=== PATIENT | female | born 1985 | race Hispanic/Latino ===

== ENCOUNTER 2022-02-18 22:31 | Inpatient (IN) | payer SELFPAY ==
[2022-02-18 22:44] LABS: #Lymphocytes 0.7 thou/uL (1.20-3.40); #Monocytes 0.7 thou/uL (0.11-0.59); #Neutrophils 13.3 thou/uL (1.40-6.50); %Basophils 0.3 % (0.0-1.0); %Lymphocytes 4.8 % (21.0-51.0); %Neutrophils 89.9 % (42.0-75.0); Hemoglobin 14.8 g/dL (12.0-16.0); Mean Corpuscular HGB CONC 32.6 g/dL (32.0-36.0); Mean Corpuscular Hemoglobin 27.8 pg (27.0-31.0); Mean Corpuscular Volume 85.2 fL (78.0-98.0); Mean Platelet Volume 10.9 fL (7.4-10.4); Platelet Count 123 thou/uL (130-400); RBC Distribution Width 19.3 % (11.5-14.5); Red Blood Cell (RBC) Count 5.32 mill/uL (4.20-5.40); White Blood Cell (WBC) Count 14.8 thou/uL (4.8-10.8)
[2022-02-18 22:54] LABS: INR-International Normal Ratio 1.1; Prothrombin Time 14.3 sec (12.0-14.7)
[2022-02-18 22:55] LABS: PTT 26.8 sec (22.9-36.1)
[2022-02-18 22:59] LABS: Large Platelets SLIGHT; MDiff Complete? YES; Platelet Morphology Comment Appears Decreased; RBC Morphology Normal
[2022-02-18] MEDS ORDERED: Labetalol HCl 100 MG/20 ML VIAL ONE (23:00)
[2022-02-18 23:09] LABS: ALT (SGPT) 23 U/L (8-55); AST (SGOT) 34 U/L (5-34); Albumin 3.9 g/dL (3.5-5.0); Alkaline Phosphatase 73 U/L (40-110); Anion Gap 15 mmol/L (10-20); BUN (Urea Nitrogen) 16 mg/dL (7.0-18.7); Bilirubin, Total 1.7 mg/dL (0.2-1.2); CK (CPK) 87 U/L (29-168); Calc. Creatinine Clearance 0 mL/min (70-130); Calcium 8.8 mg/dL (7.8-10.44); Carbon Dioxide 24 mmol/L (22-29); Chloride 101 mmol/L (98-107); Estimated GFR 95; Globulin 3.2 g/dL (2.4-3.5); Glucose 119 mg/dL (70-105); Potassium 3.2 mmol/L (3.5-5.1); Protein, Total 7.1 g/dL (6.0-8.3); Sodium 137 mmol/L (136-145)
[2022-02-18 23:11] LABS: BHCG - Serum Negative (NEGATIVE); Pregs Control Background? CLEAR/WHITE (CLR/WHITE); Pregs Control Bar Appear? YES (CONTROL BAR)
[2022-02-18] MEDS ORDERED: Enoxaparin Sodium 100 MG/ML SYRINGE ONE (23:31)
[2022-02-18] MEDS ORDERED: niCARdipine 25 MG/10 ML VIAL ONE (23:31)
[2022-02-18 23:37] LABS: CKMB 3.3 ng/mL (0-6.6)
[2022-02-18] MEDS ORDERED: Potassium Chloride 20 MEQ TAB PO SCH (23:45)
[2022-02-18] MEDS ORDERED: Morphine 4 MG/ML VIAL ONE (23:50)
[2022-02-19 00:02] LABS: Magnesium 1.2 mg/dL (1.6-2.6)
[2022-02-19] MEDS ORDERED: Magnesium 2 GM/50 ML(in water) 2 GM in Premix Bag 1 BAG IVPB SCH ×2 (00:30→10:00)
[2022-02-19] MEDS ORDERED: Furosemide 20 MG/2 ML VIAL SLOW IVP SCH (01:00)
[2022-02-19] MEDS ORDERED: niCARdipine 25 MG in Sodium Chloride 0.9% 250 ML 250 ML IVPB SCH (01:00)
[2022-02-19 01:46] LABS: SARS-CoV-2 NAA Rapid Test Not Detected (NotDetected)
[2022-02-19 01:57] LABS: Mean Corpuscular HGB CONC 30.9 g/dL (32.0-36.0); Mean Corpuscular Hemoglobin 26.6 pg (27.0-31.0); Mean Platelet Volume 11.7 fL (7.4-10.4); Platelet Count 123 thou/uL (130-400); RBC Distribution Width 19.3 % (11.5-14.5); Red Blood Cell (RBC) Count 5.28 mill/uL (4.20-5.40); White Blood Cell (WBC) Count 18.7 thou/uL (4.8-10.8)
[2022-02-19 02:20] LABS: Anion Gap 18 mmol/L (10-20); BUN (Urea Nitrogen) 16 mg/dL (7.0-18.7); Calc. Creatinine Clearance 0 mL/min (70-130); Calcium 8.6 mg/dL (7.8-10.44); Carbon Dioxide 23 mmol/L (22-29); Chloride 100 mmol/L (98-107); Estimated GFR 86; Glucose 142 mg/dL (70-105); Magnesium 1.2 mg/dL (1.6-2.6); Potassium 3.1 mmol/L (3.5-5.1); Sodium 138 mmol/L (136-145)
[2022-02-19 02:21] LABS: ALT (SGPT) 21 U/L (8-55); AST (SGOT) 32 U/L (5-34); Albumin 3.8 g/dL (3.5-5.0); Alkaline Phosphatase 69 U/L (40-110); Bilirubin, Direct 0.6 mg/dL (0.1-0.3); Bilirubin, Total 1.9 mg/dL (0.2-1.2)
[2022-02-19 02:34] LABS: Critical Call Chem Troponin I RESULT DECREASING; Troponin I 0.776 ng/mL (< 0.028)
[2022-02-19 02:42] LABS: Band 4 % (5-11); Differential Comment Immature Cell(s); Hypochromia SLIGHT = 6-15 cells (100X) (0-5/hpf); Large Platelets SLIGHT; Lymphocytes 9 % (21-51); MDiff Complete? YES; Monocytes 4 % (0-10); Neutrophil 82 % (42-75); Platelet Morphology Comment Appears Decreased; Polychromasia SLIGHT = 2-3 cells (100X) (0-2/hpf); Reflex for Review?? YES; Stomatocytes MODERATE= 6-15 cells (100X) (0-1/hpf)
[2022-02-19 03:33] VITALS: BMI 34.3
[2022-02-19] MEDS: Acetaminophen 325 MG TAB PO PRN ×3 (03:56→21:13)
[2022-02-19 04:01] LABS: Bilirubin Negative (Negative); Blood, Urine 3+ (Negative); Clarity Turbid (Clear); Glucose, Urine (Dipstick) Normal (Negative); Ketone, Urine Negative (Negative); Leukocyte 25 Leu/uL (Negative); Nitrite Negative (Negative); Protein, Urine (Dipstick) 50 mg/dL (Neg-Trace); Specific Gravity, Urine 1.013 (1.002-1.036); Squamous Epithelial 0-3 HPF (0-3)
[2022-02-19 04:02] LABS: Amphetamine Not Detected (NotDetected); Barbiturates Screen Not Detected (NotDetected); Benzodiazepine Screen Not Detected (NotDetected); Cocaine Metabolite Screen Not Detected (NotDetected); Methadone Not Detected (NotDetected); Methamphetamine Not Detected (NotDetected); Opiate Screen Detected (NotDetected); Oxycodone Screen Not Detected (NotDetected); Phencyclidine (PCP) Not Detected (NotDetected); THC/Cannabinoid Screen Not Detected (NotDetected); Tricyclic Screen Not Detected (NotDetected)
[2022-02-19 04:05] LABS: Bacteria/HPF 4+ HPF (None Seen); RBC/HPF 0-3 HPF (0-3)
[2022-02-19 04:06] LABS: Urine Culture Reflex Yes Yes
[2022-02-19 04:58] LABS: Troponin I 0.833 ng/mL (< 0.028)
[2022-02-19] MEDS ORDERED: Morphine 2 MG/ML VIAL SLOW IVP SCH ×2 (05:15→08:00)
[2022-02-19] MEDS: cefTRIAXone\\ROCEPHIN 1 GM in Sodium Chloride 0.9% 100 ML IVPB SCH (05:32)
[2022-02-19] MEDS: Furosemide 20 MG/2 ML VIAL SLOW IVP SCH ×2 (06:00→14:12)
[2022-02-19] MEDS ORDERED: Morphine 4 MG/ML VIAL ONE (07:28)
[2022-02-19] MEDS ORDERED: Albuterol 200 PUFF (6.7GM INHALER) INH PRN (08:29)
[2022-02-19] MEDS ORDERED: Electrolyte Replacement Protocol 1 EACH FS SCH (08:30)
[2022-02-19 08:54] LABS: Anion Gap 18 mmol/L (10-20); BUN (Urea Nitrogen) 11 mg/dL (7.0-18.7); Calc. Creatinine Clearance 129 mL/min (70-130); Calcium 8.4 mg/dL (7.8-10.44); Carbon Dioxide 22 mmol/L (22-29); Chloride 98 mmol/L (98-107); Estimated GFR 88; Glucose 136 mg/dL (70-105); Magnesium 1.8 mg/dL (1.6-2.6); Potassium 3.3 mmol/L (3.5-5.1); Sodium 135 mmol/L (136-145)
[2022-02-19 09:03] LABS: Troponin I 0.899 ng/mL (< 0.028)
[2022-02-19] MEDS: hydrALAZINE 25 MG TAB PO SCH ×3 (09:33→20:37)
[2022-02-19 09:43] LABS: Hemoglobin A1c 5.7 % (4.0-6.0)
[2022-02-19] MEDS ORDERED: Potassium Chloride 20 MEQ TAB PO SCH (10:00)
[2022-02-19] MEDS ORDERED: Magnevist 469MG/ML 20 ML VIAL ONE (14:08)
[2022-02-19] MEDS: Ondansetron PF 4 MG/2 ML Vial IVP PRN ×2 (14:10→21:21)
[2022-02-19] MEDS ORDERED: traMADol HCl 50 MG TAB PO SCH (22:15)
[2022-02-20] MEDS: Acetaminophen 325 MG TAB PO PRN ×5 (02:48→22:42)
[2022-02-20] MEDS: Ondansetron PF 4 MG/2 ML Vial IVP PRN ×3 (04:21→20:26)
[2022-02-20] MEDS: Furosemide 20 MG/2 ML VIAL SLOW IVP SCH ×2 (06:15→13:13)
[2022-02-20] MEDS: cefTRIAXone\\ROCEPHIN 1 GM in Sodium Chloride 0.9% 100 ML IVPB SCH (06:15)
[2022-02-20 07:17] LABS: #Eosinphils 0.1 thou/uL (0.0-0.7); #Lymphocytes 1.1 thou/uL (1.20-3.40); #Monocytes 0.8 thou/uL (0.11-0.59); #Neutrophils 11.8 thou/uL (1.40-6.50); %Basophils 0.1 % (0.0-1.0); %Eosinophils 0.4 % (0.0-10.0); %Lymphocytes 7.7 % (21.0-51.0); %Monocytes 5.6 % (0.0-10.0); %Neutrophils 86.2 % (42.0-75.0); Hemoglobin 13.4 g/dL (12.0-16.0); Mean Corpuscular HGB CONC 31.5 g/dL (32.0-36.0); Mean Corpuscular Hemoglobin 26.8 pg (27.0-31.0); Mean Corpuscular Volume 84.9 fL (78.0-98.0); Mean Platelet Volume 11.2 fL (7.4-10.4); Platelet Count 114 thou/uL (130-400); RBC Distribution Width 19.3 % (11.5-14.5); Red Blood Cell (RBC) Count 5.01 mill/uL (4.20-5.40); White Blood Cell (WBC) Count 13.7 thou/uL (4.8-10.8)
[2022-02-20 07:36] LABS: Anion Gap 12 mmol/L (10-20); BUN (Urea Nitrogen) 16 mg/dL (7.0-18.7); Calc. Creatinine Clearance 116 mL/min (70-130); Calcium 8.9 mg/dL (7.8-10.44); Carbon Dioxide 29 mmol/L (22-29); Cardiac Risk 2.9 (Less than 4.5); Chloride 98 mmol/L (98-107); Cholesterol 150 mg/dl (< 200 Desired); Estimated GFR 78; Glucose 146 mg/dL (70-105); HDL Cholesterol 51 mg/dL (>60 Neg Risk); LDL Cholesterol, Calculated 78 mg/dL; Magnesium 1.8 mg/dL (1.6-2.6); Potassium 3.1 mmol/L (3.5-5.1); Sodium 136 mmol/L (136-145); Triglycerides 103 mg/dL (Less than 150)
[2022-02-20] MEDS ORDERED: Magnesium 2 GM/50 ML(in water) 2 GM in Premix Bag 1 BAG IVPB SCH (08:00)
[2022-02-20] MEDS: Enoxaparin Sodium 40 MG/0.4 ML SYRINGE SC SCH (08:06)
[2022-02-20] MEDS: Potassium Chloride 20 MEQ TAB PO SCH ×2 (08:06→13:13)
[2022-02-20] MEDS: hydrALAZINE 25 MG TAB PO SCH ×3 (08:08→20:25)
[2022-02-20] MEDS ORDERED: NIFEdipine XL 30 MG TAB PO SCH (09:00)
[2022-02-20] MEDS ORDERED: Bisacodyl 10 MG SUPP PR PRN (14:08)
[2022-02-20] MEDS: Senokot S 8.6-50 MG TAB PO SCH (20:25)
[2022-02-20] MEDS: NIFEdipine XL 30 MG TAB PO SCH (20:26)
[2022-02-21] MEDS: Acetaminophen 325 MG TAB PO PRN ×5 (03:50→23:11)
[2022-02-21 05:27] LABS: #Monocytes 0.7 thou/uL (0.11-0.59); #Neutrophils 7.8 thou/uL (1.40-6.50); %Basophils 0.4 % (0.0-1.0); %Eosinophils 0.4 % (0.0-10.0); %Lymphocytes 10.4 % (21.0-51.0); %Neutrophils 81.7 % (42.0-75.0); Hemoglobin 13.7 g/dL (12.0-16.0); Mean Corpuscular HGB CONC 30.7 g/dL (32.0-36.0); Mean Corpuscular Hemoglobin 26.9 pg (27.0-31.0); Mean Corpuscular Volume 87.5 fL (78.0-98.0); Mean Platelet Volume 10.9 fL (7.4-10.4); Platelet Count 134 thou/uL (130-400); RBC Distribution Width 19.6 % (11.5-14.5); Red Blood Cell (RBC) Count 5.09 mill/uL (4.20-5.40); White Blood Cell (WBC) Count 9.5 thou/uL (4.8-10.8)
[2022-02-21 05:37] LABS: Anion Gap 16 mmol/L (10-20); BUN (Urea Nitrogen) 17 mg/dL (7.0-18.7); Calc. Creatinine Clearance 125 mL/min (70-130); Calcium 9.4 mg/dL (7.8-10.44); Carbon Dioxide 26 mmol/L (22-29); Chloride 98 mmol/L (98-107); Estimated GFR 87; Glucose 164 mg/dL (70-105); Potassium 3.6 mmol/L (3.5-5.1); Sodium 136 mmol/L (136-145)
[2022-02-21] MEDS: cefTRIAXone\\ROCEPHIN 1 GM in Sodium Chloride 0.9% 100 ML IVPB SCH (06:04)
[2022-02-21] MEDS: Furosemide 20 MG/2 ML VIAL SLOW IVP SCH (06:04)
[2022-02-21] MEDS: Ondansetron PF 4 MG/2 ML Vial IVP PRN (06:05)
[2022-02-21] MEDS: hydrALAZINE 25 MG TAB PO SCH ×3 (09:04→20:30)
[2022-02-21] MEDS: Polyethylene Glycol 3350 17 GM Packet PO SCH (09:04)
[2022-02-21] MEDS: Senokot S 8.6-50 MG TAB PO SCH ×2 (09:05→20:32)
[2022-02-21] MEDS: Potassium Chloride 20 MEQ TAB PO SCH (09:05)
[2022-02-21] MEDS: Furosemide 20 MG TAB PO SCH ×2 (09:05→14:56)
[2022-02-21] MEDS: NIFEdipine XL 30 MG TAB PO SCH ×2 (09:06→20:30)
[2022-02-21] MEDS: Enoxaparin Sodium 40 MG/0.4 ML SYRINGE SC SCH (09:06)
[2022-02-21] MEDS ORDERED: NIFEdipine XL 30 MG TAB PO SCH ×2 (09:15→10:00)
[2022-02-21 23:08] LABS: HIV-1 Quantitative, RNA PCR <20 copies/mL (.)
[2022-02-22] MEDS: Polyethylene Glycol 3350 17 GM Packet PO SCH (08:28)
[2022-02-22] MEDS: Acetaminophen 325 MG TAB PO PRN (08:29)
[2022-02-22] MEDS: Senokot S 8.6-50 MG TAB PO SCH ×2 (08:30→20:58)
[2022-02-22] MEDS: metFORMIN 500 MG TAB PO SCH (08:30)
[2022-02-22] MEDS: Hydrochlorothiazide 25 MG TAB PO SCH (08:30)
[2022-02-22] MEDS: hydrALAZINE 25 MG TAB PO SCH ×3 (08:30→20:57)
[2022-02-22] MEDS: NIFEdipine XL 30 MG TAB PO SCH ×2 (08:30→20:57)
[2022-02-22] MEDS: Losartan 25 MG TAB PO SCH (08:31)
[2022-02-22] MEDS: Potassium Chloride 20 MEQ TAB PO SCH (08:31)
[2022-02-22] MEDS: Enoxaparin Sodium 40 MG/0.4 ML SYRINGE SC SCH (08:31)
[2022-02-22] MEDS: Metoprolol Tartrate 25 MG TAB PO SCH ×2 (09:40→20:57)
[2022-02-22] MEDS ORDERED: Iopamidol 370 76% 100 ML VIAL ONE (16:04)
[2022-02-23] MEDS: NIFEdipine XL 30 MG TAB PO SCH (09:06)
[2022-02-23] MEDS: hydrALAZINE 25 MG TAB PO SCH ×2 (09:06→14:20)
[2022-02-23] MEDS: Potassium Chloride 20 MEQ TAB PO SCH (09:06)
[2022-02-23] MEDS: Polyethylene Glycol 3350 17 GM Packet PO SCH (09:06)
[2022-02-23] MEDS: metFORMIN 500 MG TAB PO SCH (09:06)
[2022-02-23] MEDS: Hydrochlorothiazide 25 MG TAB PO SCH (09:06)
[2022-02-23] MEDS: Metoprolol Tartrate 25 MG TAB PO SCH (09:06)
[2022-02-23] MEDS: Senokot S 8.6-50 MG TAB PO SCH (09:06)
[2022-02-23] MEDS: Losartan 25 MG TAB PO SCH (09:07)
[2022-02-23] MEDS: Enoxaparin Sodium 40 MG/0.4 ML SYRINGE SC SCH (09:07)
[2022-02-23 11:38] VITALS: TEMP 98.1
[2022-02-23 14:29] VITALS: BP 125/84
[2022-02-25 15:07] LABS: ANA Symphony (Qualitative) Negative (Negative); ANA Symphony (Quantitative) 0.3 Ratio (< 0.7 Negative); dsDNA IgG Antibody 0.7 IU/mL (<10 Negative)
== END 2022-02-23 15:50 | disposition home or self-care (01) | DRG 280 ==
LOC: ERS 22:31 → ERHOLD 23:54 → CCU 02-19 02:05 → NEURO 02-20 02:47
PROVIDERS: ADMIT Internal Medicine; ATTEND Internal Medicine
DX: I16.1 Hypertensive emergency (principal); I21.A1 Myocardial infarction type 2; Z20.822 Contact with and (suspected) exposure to COVID-19; I67.83 Posterior reversible encephalopathy syndrome; J96.01 Acute respiratory failure with hypoxia; N30.00 Acute cystitis without hematuria; A41.4 Sepsis due to anaerobes; I27.20 Pulmonary hypertension, unspecified; J45.20 Mild intermittent asthma, uncomplicated; F41.9 Anxiety disorder, unspecified; D69.6 Thrombocytopenia, unspecified; G93.89 Other specified disorders of brain; D72.810 Lymphocytopenia; G47.33 Obstructive sleep apnea (adult) (pediatric); Z86.73 Personal history of transient ischemic attack (TIA), and cerebral infarction without residual deficits; Z88.8 Allergy status to other drugs, medicaments and biological substances; Z90.49 Acquired absence of other specified parts of digestive tract; Z83.3 Family history of diabetes mellitus; Z91.19 Patient's noncompliance with other medical treatment and regimen; Z86.16 Personal history of COVID-19
CPT/HCPCS: 36415; 70450; 70553; 71045; 71275; 74176; 80048; 80053; 80061; 80076; 80306; 81001; 82550; 82553; 83036; 83690; 83735; 83880; 84484; 84703; 85025; 85060; 85379; 85610; 85730; 86038; 86225; 87040; 87077; 87086; 87149; 87186; 87536; 93005; 93306; 96365; 96374; 96375; 96376; A9579; J0696; J1650; J1940; J2270; J2405; J3475; J3490; Q9967; U0002